=== PATIENT | male | born 1985 | race Hispanic/Latino ===

== ENCOUNTER 2019-10-20 16:10 | Emergency (ER) | payer OTHER ==
[~2019-10-20] VITALS: Ht 177.8 cm; Wt 137.0 kg
[~2019-10-20 16:10] MED LIST: BYETTA5 MCG/0.01 SC; GLIPIZIDE PO; LEVEMIR100 UNIT/1 SC; NOVOLOG MI100 UNITS/ SC; SENNA-DOCUSATE1 EAC2 PO; Z.0.GLUCOPHAGE500 MG PO; Z.0.NORCO 10-325 T1 PO; Z.0.PRINIVIL5 MG; [UNRECOGNIZED DRUG - OTHER]
[2019-10-20] MEDS ORDERED: ONDANSETRON HCL INJ 2MG/ML 2ML 2 MG/ML VIAL IV STA (16:38)
[2019-10-20] MEDS ORDERED: MORPHINE SULFATE INJ 4 MG/ML INJ 1ML IV STA (16:38)
[2019-10-20] MEDS ORDERED: SODIUM CHLORIDE 0.9% 1000ML 1,000 ML IV STA (16:38)
[2019-10-20 17:10] LABS: CLARITY,URINE HAZY (CLEAR); COLOR,URINE YELLOW (YELLOW); LEUKOCYTE ESTERASE ,URINE NEGATIVE (NEGATIVE); NITRITE,URINE NEGATIVE (NEGATIVE); PROTEIN,URINE DIPSTICK NEGATIVE (NEGATIVE)
[2019-10-20 17:11] LABS: BACTERIA,URINE FEW /HPF; BILIRUBIN,URINE NEGATIVE (NEGATIVE); EPITHELIAL CELLS,URINE FEW /LPF; KETONES,URINE NEGATIVE (NEGATIVE); RBC,URINE 0-5 /HPF (0-5); URINE UROBILINOGEN 0.2 mg/dL (0.2 - 1); WBC,URINE (MAN) 0-5 /HPF (0-5)
[2019-10-20 17:32] LABS: BASOPHILS % 0.3 % (0.0-1.0); EOSINOPHILS # (AUTO) 0.1 (0.0-0.4); EOSINOPHILS % 1.9 % (0.0-6.0); HEMATOCRIT 46.1 % (38.2-49.6); LYMPHOCYTES # (AUTO) 1.9 (1.0-3.2); LYMPHOCYTES % 27.5 % (18.0-39.1); MEAN CORPUSCULAR HEMOGLOBIN 29.4 pg (28-32); MEAN CORPUSCULAR HGB CONC 34.7 g/dL (31-35); MEAN CORPUSCULAR VOLUME 84.6 fL (81-99); MONOCYTES # (AUTO) 0.5 (0.2-0.8); MONOCYTES % 7.1 % (4.4-11.3); NEUTROPHILS # (AUTO) 4.2 (2.1-6.9); NEUTROPHILS % 62.9 % (38.7-80.0); PLATELET COUNT 244 x10e3/uL (140-360); RED BLOOD COUNT 5.45 x10e6/uL (4.3-5.7); RED CELL DISTRIBUTION WIDTH 11.8 % (11.7-14.4)
[2019-10-20 17:48] LABS: ALANINE AMINOTRANSFERASE 23 IU/L (0-55); ALBUMIN 3.2 g/dL (3.5-5.0); ALKALINE PHOSPHATASE 93 IU/L (40-150); ANION GAP 10.1 mmol/L (8-16); BLOOD UREA NITROGEN 7 mg/dL (7-26); BUN/CREATININE RATIO 8 (6-25); CALCIUM 8.8 mg/dL (8.4-10.2); CARBON DIOXIDE 28 mmol/L (22-29); CHLORIDE 101 mmol/L (98-107); CREATININE, SERUM 0.91 mg/dL (0.72-1.25); EST GLOMERULAR FILTRATION RATE > 60 ML/MIN (60-); GLUCOSE 347 mg/dL (74-118); POTASSIUM 4.1 mmol/L (3.5-5.1); SODIUM 135 mmol/L (136-145)
--- NOTE | 2019-10-20 18:43 | Diagnostic Imaging Report ---
EXAM: CT Abdomen and Pelvis WITH contrast INDICATION: ^RIGHT INQUINAL PAIN ^[id number] ^1800 COMPARISON: None. TECHNIQUE: Abdomen and pelvis were scanned utilizing a multidetector helical scanner from the lung base to the pubic symphysis after administration of IV contrast. Coronal and sagittal reformations were obtained. Routine protocol was performed. Scan was performed when during portal venous phase. IV CONTRAST: 100 mL of Isovue-370 ORAL CONTRAST: None RADIATION DOSE: Total DLP: 1425 mGy*cm Estimated effective dose: (DLP x 0.015 x size factor) mSv COMPLICATIONS: None FINDINGS: LINES and TUBES: None. LOWER THORAX: Unremarkable HEPATOBILIARY: No focal hepatic lesions. No biliary ductal dilation. GALLBLADDER: No radio-opaque stones or sludge. No wall thickening. SPLEEN: No splenomegaly. PANCREAS: Mild diffuse atrophy of the pancreas. No pancreatic masses. No pancreatic duct dilatation. ADRENALS: No adrenal nodules KIDNEYS/URETERS: Kidneys enhance symmetrically. No hydronephrosis. No cystic or solid mass lesions. No stones. GI TRACT: No abnormal distention, wall thickening, or evidence of bowel obstruction. Appendectomy. PELVIC ORGANS/BLADDER: Unremarkable. LYMPH NODES: No lymphadenopathy. VESSELS: Unremarkable. PERITONEUM / RETROPERITONEUM: No free air or fluid. 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 SOFT TISSUES: Unremarkable. IMPRESSION: No acute abnormality within the abdomen and pelvis. Fatty atrophy of the pancreas. Signed by: Dr. Nadya Corey M.D. on 10/20/2019 6:40 PM
[2019-10-20] MEDS ORDERED: INSULIN REGULAR, HUMAN 100 UNIT/1 ML 3ML VIAL IV ONE (19:00)
[2019-10-20 19:28] VITALS: BP 133/79
== END 2019-10-20 19:32 | disposition home or self-care (01) ==
LOC: ER 16:10
DX: R10.31 Right lower quadrant pain (principal); S39.011A Strain of muscle, fascia and tendon of abdomen, initial encounter; R73.9 Hyperglycemia, unspecified; Z88.0 Allergy status to penicillin; Z91.018 Allergy to other foods; E11.9 Type 2 diabetes mellitus without complications; Z83.3 Family history of diabetes mellitus; Z82.49 Family history of ischemic heart disease and other diseases of the circulatory system
CPT/HCPCS: 36415; 74177; 80053; 81001; 82948; 85025; 99284; J1817; J2270; J2405; J7030

== ENCOUNTER 2019-11-14 18:49 | Emergency (ER) | payer OTHER ==
[~2019-11-14] VITALS: Ht 177.8 cm; Wt 137.0 kg
--- OUTSIDE RECORDS SUMMARY | 2019-11-14 18:53 | XMS REPORT ---
Author Author [facility] Organization [facility] Address Unknown Phone Unavailable Care Team Providers Care Ceo Na Name Role Phone SOLEDAD WEATHERS MD PP Kaity [place] Unavailable Unavailable Payers Payer Name Policy Type Policy Number Effective Date Expiration Date [employer] o [id number] 2017 00:00:00 Problems This patient has no known problems. Allergies, Adverse Reactions, Alerts Allergy Name Allergy Type Status Severity Reaction(s) Onset Date Inactive Date Treating Clinician Comments AYDEE SKIN Allergy to Substance Active Mild SWELLING OF THE LIPS 2011-02-16 00:00:00 Penicillin Allergy to Substance Active Severe RASH 2010-02-22 00:00:00 Medications Ordered Medication Name Filled Medication Name Start Date Stop Date Current Medication? Ordering Clinician Indication Dosage Frequency Signature (SIG) Comments Components Insulin Aspart (Novolog Mix 70-30 Vial) 100 Units/Ml Ml Insulin Aspart (Novolog Mix 70-30 Vial) 100 Units/Ml Ml Yes 30 Three Times A Day Insulin Detemir (Levemir) 100 Unit/1 Ml Vial Insulin Detemir (Levemir) 100 Unit/1 Ml Vial Yes 30 Bedtime Exenatide (Byetta) 5 Mcg/0.02 Ml Pen.injctr, 10 Units Subcutaneously Exenatide (Byetta) 5 Mcg/0.02 Ml Pen.injctr, 10 Units Subcutaneously 2016-04-14 00:00:00 No 10 Twice A Day Metformin Hcl (Glucophage) 500 Mg Tablet, 500 Mg Oral Metformin Hcl (Glucophage) 500 Mg Tablet, 500 Mg Oral 2016-04-14 00:00:00 No 500 Twice A Day Glipizide (Glucotrol) 10 Mg Tablet, 10 Mg Oral Glipizide (Glucotrol) 10 Mg Tablet, 10 Mg Oral 2013-03-06 00:00:00 No 10 Twice A Day Hydrocodone Bit/Acetaminophen ([place] 10-325 Tablet) 1 Each Tablet, 1 Each Oral Hydrocodone Bit/Acetaminophen ([place] 10-325 Tablet) 1 Each Tablet, 1 Each Oral 2011-12-11 00:00:00 No 1 Every 6 Hours as needed Lisinopril (Prinivil) 5 Mg Tablet, Lisinopril (Prinivil) 5 Mg Tablet, 2011-12-11 00:00:00 No Pitavastatin Calcium (Livalo) 4 Mg Tablet, Pitavastatin Calcium (Livalo) 4 Mg Tablet, 2011-12-11 00:00:00 No Sennosides/Docusate Sodium (Senna-Docusate Sodium Tablet) 1 Each Tablet, 2 Tab Oral Sennosides/Docusate Sodium (Senna-Docusate Sodium Tablet) 1 Each Tablet, 2 Tab Oral 2011-12-11 00:00:00 No 2 Procedures and Interventions Procedure Date / Time Performed Performing Clinician Computed tomography of abdomen and pelvis with contrast 2019-10-20 00:00:00 TATIANA CARRINGTON Encounters Start Date/Time End Date/Time Encounter Type Admission Type Attending [facility] Care Department Encounter ID 2019-10-20 16:10:00 2019-10-20 19:32:00 Departed Emergency Room 1 [facility] [id number] Results Test Description Test Time Test Comments Text Results Atomic Results Result Comments Bedside Glucose 2019-10-20 19:37:00 Bedside Glucose (test uwib=04142-9) 178 70-120 Meter ID: [id number] ABDOMEN/PELVIS [id number] 18:32:00 [place] [address] Patient Name: MOO FRASER III MR #: [id number] : 1985 Age/Sex: 34/M Req #: [id number] [facility] Physician: Ordered by: TATIANA CARRINGTON [employer] Report #: [id number] Location: ER Room/Bed: Procedure: [id number] CT/CT ABDOMEN/PELVIS W Exam Date: 10/20/19 Exam T anna: 1800 REPORT STATUS: Signed EXAM: CT Abdomen and Pelvis WITH contrast INDICATION: RIGHT INQUINA L PAIN [id number] 1800 COMPARISON: None. TECHNIQUE: Abdomen and p elida were scanned utilizing a multidetector helical scanner from the lung bas e to the pubic symphysis after administration of IV contrast. Coronal and sagi ttal reformations were obtained. Routine protocol was performed. Scan was perf ormed when during portal venous phase. IV CONTRAST: 100 mL of Isov ue-370 ORAL CONTRAST: None RADIATION DOSE: Total DLP : 1425 mGy*cm Estimated effective dose: (DLP x 0.015 x size facto r) mSv COMPLICATIONS: None FINDINGS: LINES and TUBES: No ne. LOWER THORAX: Unremarkable HEPATOBILIARY: No focal hepatic l esions. No biliary ductal dilation. GALLBLADDER: No radio-opaque stones or sludge. No wall thickening. SPLEEN: No splenomegaly. PANCREAS: Mild diffuse atrophy of the pancreas. No pancreatic masses. No pancreatic duct dil atation. ADRENALS: No adrenal nodules KIDNEYS/URETERS: Kidneys e nhance symmetrically. No hydronephrosis. No cystic or solid mass lesions. No stones. GI TRACT: No abnormal distention, wall thickening, or evidence of bowel obstruction. Appendectomy. PELVIC ORGANS/BLADDER: Unremarkabl e. LYMPH NODES: No lymphadenopathy. VESSELS: Unremarkable. PERITO NEUM / RETROPERITONEUM: No free air or fluid. 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 SOFT TISSUES: Unremarkable. IMPRESSION: No acute abnormality within the abdomen and pelvis. Fatty atrophy of the pancreas. Signed by: Dr. Renate Ruano M.D. on 10/20/2019 6:40 PM Dictated By: RENATE RUANO MD 1840 Transcribed By: HENRIQUE on 10/20/19 18 40 COPY TO: TATIANA CARRINGTON NP Sodium Jbbxa1255-65-93 17:51:00* Test Item Value Reference Range Comments Sodium Level (test pvwe=9749-3) 135 136-145 Potassium Tauii0868-09-59 17:51:00* Test Item Value Reference Range Comments Potassium Level (test gnkx=0473-8) 4.1 3.5-5.1 Chloride Ownez1120-34-14 17:51:00* Test Item Value Reference Range Comments Chloride Level (test xlqz=2462-0) 101 98-107 Carbon Dioxide Xajii7905-10-37 17:51:00* Test Item Value Reference Range Comments Carbon Dioxide Level (test vzsf=7262-6) 28 22-29 Anion Fzg3563-21-80 17:51:00* Test Item Value Reference Range Comments Anion Gap (test uczt=89053-8) 10.1 8-16 Blood Urea Kamknqbk2832-41-90 17:51:00* Test Item Value Reference Range Comments Blood Urea Nitrogen (test pbnk=2768-2) 7 7-26 Jfwlhtiakf6161-16-16 17:51:00* Test Item Value Reference Range Comments Creatinine (test qimu=8797-5) 0.91 0.72-1.25 BUN/Creatinine Fdkzl2760-73-62 17:51:00* Test Item Value Reference Range Comments BUN/Creatinine Ratio (test vrvi=7948-0) 8 6-25 Estimat Glomerular Filtration Ukct8890-52-50 17:51:00* Test Item Value Reference Range Comments Estimat Glomerular Filtration Rate (test txpv=621769363) > 60 >60 Ranges were taken from the National Kidney Disease Education Program and the [facility] literature.Reference ranges:60 or greater: Pbpfug26-89 ( for 3 consecutive months): Chronic kidney disease 15 or less: Kidney failure Glucose Lsbiz1695-46-10 17:51:00* Test Item Value Reference Range Comments Glucose Level (test xave=QAA3149) 347 74-118 Calcium Athut0318-88-18 17:51:00* Test Item Value Reference Range Comments Calcium Level (test ncdr=34298-9) 8.8 8.4-10.2 Total Uendovpze1280-03-45 17:51:00* Test Item Value Reference Range Comments Total Bilirubin (test lzhy=2157-2) 0.3 0.2-1.2 Aspartate Amino Transf (AST/SGOT)2019-10-20 17:51:00* Test Item Value Reference Range Comments Aspartate Amino Transf (AST/SGOT) (test code=Aspartate Amino Transf (AST/SGOT)) 16 5-34 Alanine Aminotransferase (ALT/SGPT)2019-10-20 17:51:00* Test Item Value Reference Range Comments Alanine Aminotransferase (ALT/SGPT) (test xibp=7870-5) 23 0-55 Total Klzsdkw8235-59-05 17:51:00* Test Item Value Reference Range Comments Total Protein (test guwi=8201-4) 6.5 6.5-8.1 Nzonytb7183-67-47 17:51:00* Test Item Value Reference Range Comments Albumin (test zout=4284-0) 3.2 3.5-5.0 Txhkkyms7938-84-05 17:51:00* Test Item Value Reference Range Comments Globulin (test lqlp=11993-1) 3.3 2.3-3.5 Albumin/Globulin Ptypy4511-75-61 17:51:00* Test Item Value Reference Range Comments Albumin/Globulin Ratio (test oqko=6254-9) 1.0 0.8-2.0 Alkaline Poykapndcks2779-62-24 17:51:00* Test Item Value Reference Range Comments Alkaline Phosphatase (test ixjz=6686-0) 93 40-150 White Blood Cvzsu9162-53-54 17:32:00* Test Item Value Reference Range Comments White Blood Count (test pfrt=3366-8) 6.72 4.8-10.8 Red Blood Crjxj8271-99-15 17:32:00* Test Item Value Reference Range Comments Red Blood Count (test eorv=094-5) 5.45 4.3-5.7 Xhezjovtms8200-43-60 17:32:00* Test Item Value Reference Range Comments Hemoglobin (test ytef=37287-2) 16.0 14.0-18.0 Yfgxvpswjo3058-87-64 17:32:00* Test Item Value Reference Range Comments Hematocrit (test exmw=6272-3) 46.1 38.2-49.6 Mean Corpuscular Vjqugm4109-67-66 17:32:00* Test Item Value Reference Range Comments Mean Corpuscular Volume (test wdcm=543-1) 84.6 81-99 Mean Corpuscular Djpqzcujry4136-01-04 17:32:00* Test Item Value Reference Range Comments Mean Corpuscular Hemoglobin (test hdel=665-6) 29.4 28-32 Mean Corpuscular Hemoglobin Kmshqcf4378-99-88 17:32:00* Test Item Value Reference Range Comments Mean Corpuscular Hemoglobin Concent (test uvnj=247-2) 34.7 31-35 Red Cell Distribution Dxmfe8933-20-05 17:32:00* Test Item Value Reference Range Comments Red Cell Distribution Width (test fnto=06469-0) 11.8 11.7-14.4 Platelet Aeigj4612-94-97 17:32:00* Test Item Value Reference Range Comments Platelet Count (test dlyw=418-6) 244 140-360 Neutrophils (%) (Auto)2019-10-20 17:32:00* Test Item Value Reference Range Comments Neutrophils (%) (Auto) (test nkwg=70581-0) 62.9 38.7-80.0 Lymphocytes (%) (Auto)2019-10-20 17:32:00* Test Item Value Reference Range Comments Lymphocytes (%) (Auto) (test iksa=224-3) 27.5 18.0-39.1 Monocytes (%) (Auto)2019-10-20 17:32:00* Test Item Value Reference Range Comments Monocytes (%) (Auto) (test suyp=4765-1) 7.1 4.4-11.3 Eosinophils (%) (Auto)2019-10-20 17:32:00* Test Item Value Reference Range Comments Eosinophils (%) (Auto) (test ebar=051-3) 1.9 0.0-6.0 Basophils (%) (Auto)2019-10-20 17:32:00* Test Item Value Reference Range Comments Basophils (%) (Auto) (test uvri=143-1) 0.3 0.0-1.0 IM GRANULOCYTES %2019-10-20 17:32:00* Test Item Value Reference Range Comments IM GRANULOCYTES % (test code=IM GRANULOCYTES %) 0.3 0.0-1.0 Neutrophils # (Auto)2019-10-20 17:32:00* Test Item Value Reference Range Comments Neutrophils # (Auto) (test qxxp=000-8) 4.2 2.1-6.9 Lymphocytes # (Auto)2019-10-20 17:32:00* Test Item Value Reference Range Comments Lymphocytes # (Auto) (test memj=70511-6) 1.9 1.0-3.2 Monocytes # (Auto)2019-10-20 17:32:00* Test Item Value Reference Range Comments Monocytes # (Auto) (test ximb=797-9) 0.5 0.2-0.8 Eosinophils # (Auto)2019-10-20 17:32:00* Test Item Value Reference Range Comments Eosinophils # (Auto) (test mxvg=144-7) 0.1 0.0-0.4 Basophils # (Auto)2019-10-20 17:32:00* Test Item Value Reference Range Comments Basophils # (Auto) (test kual=411-9) 0.0 0.0-0.1 Absolute Immature Granulocyte (oxxp6202-76-17 17:32:00* Test Item Value Reference Range Comments Absolute Immature Granulocyte (auto (test code=Absolute Immature Granulocyte (auto) 0.02 0-0.1 Urine Ycsnr9927-54-90 17:11:00* Test Item Value Reference Range Comments Urine Color (test snmc=9994-4) YELLOW YELLOW Urine Kvqscre7303-73-55 17:11:00* Test Item Value Reference Range Comments Urine Clarity (test seuf=15900-7) HAZY CLEAR Urine Specific Vwwqrjk0913-24-51 17:11:00* Test Item Value Reference Range Comments Urine Specific [place] (test okzg=1660-1) 1.025 1.010-1.025 Urine kE8526-92-16 17:11:00* Test Item Value Reference Range Comments Urine pH (test qeri=28031-0) 8.5 5-7 Urine Leukocyte Vgyzhnha5267-19-95 17:11:00* Test Item Value Reference Range Comments Urine Leukocyte Esterase (test ticp=4096-5) NEGATIVE NEGATIVE Urine Qzcpliw9933-59-01 17:11:00* Test Item Value Reference Range Comments Urine Nitrite (test kzvq=94749-1) NEGATIVE NEGATIVE Urine Efsdjjv3560-72-69 17:11:00* Test Item Value Reference Range Comments Urine Protein (test pqgl=5601-0) NEGATIVE NEGATIVE Urine Glucose (UA)2019-10-20 17:11:00* Test Item Value Reference Range Comments Urine Glucose (UA) (test nkju=0584-8) 2+ NEGATIVE Urine Zzbhbno2885-71-25 17:11:00* Test Item Value Reference Range Comments Urine Ketones (test syzn=87216-1) NEGATIVE NEGATIVE Urine Xrziakmehwbk9477-80-02 17:11:00* Test Item Value Reference Range Comments Urine Urobilinogen (test czba=29941-3) 0.2 0.2-1 Urine Zmzfxreiq0440-62-48 17:11:00* Test Item Value Reference Range Comments Urine Bilirubin (test ihfd=3250-9) NEGATIVE NEGATIVE Urine Thfxc9496-08-90 17:11:00* Test Item Value Reference Range Comments Urine Blood (test yupy=31782-8) NEGATIVE NEGATIVE Urine JJZ3143-60-86 17:11:00* Test Item Value Reference Range Comments Urine WBC (test auve=8396-9) 0-5 0-5 Urine AAU0633-37-53 17:11:00* Test Item Value Reference Range Comments Urine RBC (test zmob=18939-3) 0-5 0-5 Urine Mbtchygq5165-81-66 17:11:00* Test Item Value Reference Range Comments Urine Bacteria (test ugba=99379-0) FEW NONE Urine Epithelial Ckkhd7636-55-05 17:11:00* Test Item Value Reference Range Comments Urine Epithelial Cells (test rluw=58291-7) FEW NONE
[2019-11-14 19:43] LABS: BILIRUBIN,URINE NEGATIVE (NEGATIVE); CLARITY,URINE CLEAR (CLEAR); COLOR,URINE YELLOW (YELLOW); KETONES,URINE NEGATIVE (NEGATIVE); LEUKOCYTE ESTERASE ,URINE NEGATIVE (NEGATIVE); NITRITE,URINE NEGATIVE (NEGATIVE); PROTEIN,URINE DIPSTICK NEGATIVE (NEGATIVE); URINE UROBILINOGEN 0.2 mg/dL (0.2 - 1)
[2019-11-14 19:55] LABS: EPITHELIAL CELLS,URINE FEW /LPF; RBC,URINE 0-5 /HPF (0-5)
[2019-11-14 21:25] VITALS: BP 130/95
--- NOTE | 2019-11-15 00:11 | Diagnostic Imaging Report ---
EXAMINATION: RIBS UNILAT W/CXR INDICATION: Status post fall, left rib pain. COMPARISON: None FINDINGS: TUBES and LINES: None. LUNGS: Low lung volumes. There is no evidence of pneumonia or pulmonary edema. PLEURA: No pleural effusion or pneumothorax. HEART AND MEDIASTINUM: The cardiomediastinal silhouette is unremarkable. BONES AND SOFT TISSUES: No acute osseous lesion. Soft tissues are unremarkable. No evidence of displaced rib fracture. UPPER ABDOMEN: No free air under the diaphragm. IMPRESSION: No acute thoracic abnormality. No evidence of displaced rib fracture. Signed by: Dr. Bud Cloud MD on 11/15/2019 12:08 AM
== END 2019-11-14 21:15 | disposition home or self-care (01) ==
LOC: ER 18:49
DX: S20.212A Contusion of left front wall of thorax, initial encounter (principal); R07.89 Other chest pain; W01.198A Fall on same level from slipping, tripping and stumbling with subsequent striking against other object, initial encounter; Y92.008 Other place in unspecified non-institutional (private) residence as the place of occurrence of the external cause
CPT/HCPCS: 71101; 81001; 99283

== ENCOUNTER 2020-06-28 15:13 | Inpatient (IN) | payer OTHER ==
[~2020-06-28] VITALS: Ht 177.8 cm; Wt 137.0 kg
[2020-06-28] MEDS ORDERED: SODIUM CHLORIDE 0.9% 1000ML 1,000 ML IV STA (15:20)
[2020-06-28 15:54] LABS: BASOPHILS % 0.3 % (0.0-1.0); EOSINOPHILS # (AUTO) 0.1 (0.0-0.4); EOSINOPHILS % 1.1 % (0.0-6.0); HEMATOCRIT 45.3 % (38.2-49.6); HEMOGLOBIN 15.7 g/dL (14.0-18.0); LYMPHOCYTES # (AUTO) 1.6 (1.0-3.2); MEAN CORPUSCULAR HEMOGLOBIN 29.7 pg (28-32); MEAN CORPUSCULAR HGB CONC 34.7 g/dL (31-35); MEAN CORPUSCULAR VOLUME 85.6 fL (81-99); MONOCYTES # (AUTO) 0.4 (0.2-0.8); MONOCYTES % 6.2 % (4.4-11.3); NEUTROPHILS # (AUTO) 4.9 (2.1-6.9); NEUTROPHILS % 69.1 % (38.7-80.0); PLATELET COUNT 222 x10e3/uL (140-360); RED BLOOD COUNT 5.29 x10e6/uL (4.3-5.7); RED CELL DISTRIBUTION WIDTH 11.6 % (11.7-14.4)
[2020-06-28] MEDS ORDERED: VANCOMYCIN 1GM/NS 250 ML 250 ML IV ONE (16:00)
[2020-06-28] MEDS: CEFEPIME 2 GM/NS 0.9% 100 ML 100 ML IV SCH (16:03)
[2020-06-28 16:24] LABS: ALANINE AMINOTRANSFERASE 18 IU/L (0-55); ALBUMIN 3.2 g/dL (3.5-5.0); ALBUMIN/GLOBULIN RATIO 0.9 (0.8-2.0); ALKALINE PHOSPHATASE 117 IU/L (40-150); ANION GAP 12.3 mmol/L (8-16); BLOOD UREA NITROGEN 16 mg/dL (7-26); BUN/CREATININE RATIO 17 (6-25); CALCIUM 8.5 mg/dL (8.4-10.2); CARBON DIOXIDE 28 mmol/L (22-29); CHLORIDE 98 mmol/L (98-107); CREATININE, SERUM 0.94 mg/dL (0.72-1.25); EST GLOMERULAR FILTRATION RATE > 60 ML/MIN (60-); POTASSIUM 4.3 mmol/L (3.5-5.1); SODIUM 134 mmol/L (136-145)
[2020-06-28 16:56] LABS: GLUCOSE 472 mg/dL (74-118)
[2020-06-28] MEDS ORDERED: INSULIN LISPRO 100 UNIT/1 ML 3ML VIAL SQ STA (17:00)
[2020-06-28] MEDS ORDERED: SODIUM CHLORIDE 0.9% 1000ML 1,000 ML IV SCH (17:15)
[2020-06-28] MEDS ORDERED: DEXTROSE 50% SYRINGE 50 ML IV PRN (17:15)
[2020-06-28] MEDS ORDERED: DIPHENHYDRAMINE HCL INJ 50 MG/ML VIAL ONE (18:29)
[2020-06-28] MEDS ORDERED: DIPHENHYDRAMINE HCL INJ 50 MG/ML VIAL IV ONE (18:30)
[2020-06-28] MEDS: MORPHINE SULFATE INJ 4 MG/ML INJ 1ML IV PRN (18:45)
[2020-06-28] MEDS: ONDANSETRON HCL INJ 2MG/ML 2ML 2 MG/ML VIAL IV PRN (18:45)
[2020-06-28 19:45] VITALS: BP 135/88
[2020-06-28 20:36] VITALS: BP_SYST 135; BP_SYST 151; BP_DIAS 74; BP_DIAS 88
[2020-06-28] MEDS ORDERED: PNEUMOCOCCAL VACCINE POLYVALENT 23 MCG/0.5 ML VIAL IM SCH (20:44)
[2020-06-28] MEDS ORDERED: INFLUENZA VIRUS VAC SPLIT INJ 0.5 ML SYR IM SCH (20:44)
[2020-06-28] MEDS: INSULIN LISPRO 100 UNIT/1 ML 3ML VIAL SQ SCH (21:09)
[2020-06-28] MEDS ORDERED: INSULIN GLARGINE 100 UNITS/ML VIAL SC SCH (21:30)
[2020-06-28] MEDS: HYDROCODONE/APAP 7.5MG-325MG 1 EA TAB PO PRN (21:55)
[2020-06-28] MEDS: GABAPENTIN 100 MG CAP PO SCH (21:55)
[2020-06-29] VITALS (7 sets, daily range): BP systolic 115–146; BP diastolic 66–92
[2020-06-29] MEDS: MORPHINE SULFATE INJ 4 MG/ML INJ 1ML IV PRN ×5 (01:10→22:17)
[2020-06-29] MEDS: ONDANSETRON HCL INJ 2MG/ML 2ML 2 MG/ML VIAL IV PRN ×5 (01:10→22:17)
[2020-06-29] MEDS: CEFEPIME 2 GM/NS 0.9% 100 ML 100 ML IV SCH ×2 (03:30→17:24)
[2020-06-29] MEDS: VANCOMYCIN 1GM/NS 250 ML 250 ML IV SCH ×2 (04:40→17:24)
[2020-06-29 06:46] LABS: BASOPHILS % 0.3 % (0.0-1.0); EOSINOPHILS # (AUTO) 0.3 (0.0-0.4); EOSINOPHILS % 3.6 % (0.0-6.0); HEMATOCRIT 39.5 % (38.2-49.6); HEMOGLOBIN 13.4 g/dL (14.0-18.0); LYMPHOCYTES # (AUTO) 2.3 (1.0-3.2); LYMPHOCYTES % 32.1 % (18.0-39.1); MEAN CORPUSCULAR HEMOGLOBIN 29.5 pg (28-32); MEAN CORPUSCULAR HGB CONC 33.9 g/dL (31-35); MONOCYTES # (AUTO) 0.5 (0.2-0.8); MONOCYTES % 7.5 % (4.4-11.3); NEUTROPHILS % 56.2 % (38.7-80.0); PLATELET COUNT 203 x10e3/uL (140-360); RED BLOOD COUNT 4.54 x10e6/uL (4.3-5.7); RED CELL DISTRIBUTION WIDTH 11.5 % (11.7-14.4)
[2020-06-29 07:05] LABS: ANION GAP 10.1 mmol/L (8-16); BLOOD UREA NITROGEN 15 mg/dL (7-26); BUN/CREATININE RATIO 19 (6-25); CARBON DIOXIDE 25 mmol/L (22-29); CHLORIDE 103 mmol/L (98-107); EST GLOMERULAR FILTRATION RATE > 60 ML/MIN (60-); GLUCOSE 386 mg/dL (74-118); POTASSIUM 4.1 mmol/L (3.5-5.1); SODIUM 134 mmol/L (136-145)
[2020-06-29] MEDS: INSULIN LISPRO 100 UNIT/1 ML 3ML VIAL SQ SCH ×7 (07:30→20:26)
[2020-06-29] MEDS: GABAPENTIN 100 MG CAP PO SCH ×3 (09:31→20:27)
[2020-06-29] MEDS: SENNA-S TABLET PO SCH ×2 (09:31→17:24)
[2020-06-29] MEDS: HYDROCODONE/APAP 7.5MG-325MG 1 EA TAB PO PRN (20:27)
[2020-06-29] MEDS: INSULIN GLARGINE 100 UNITS/ML VIAL SC SCH (20:39)
[2020-06-30] VITALS (8 sets, daily range): BP systolic 119–149; BP diastolic 80–98
[2020-06-30] MEDS: CEFEPIME 2 GM/NS 0.9% 100 ML 100 ML IV SCH ×2 (03:43→16:00)
[2020-06-30] MEDS: MORPHINE SULFATE INJ 4 MG/ML INJ 1ML IV PRN ×4 (03:43→18:10)
[2020-06-30] MEDS: ONDANSETRON HCL INJ 2MG/ML 2ML 2 MG/ML VIAL IV PRN ×4 (03:43→18:10)
[2020-06-30] MEDS: VANCOMYCIN 1GM/NS 250 ML 250 ML IV SCH ×2 (04:49→16:00)
[2020-06-30] MEDS: INSULIN LISPRO 100 UNIT/1 ML 3ML VIAL SQ SCH ×7 (07:30→20:45)
[2020-06-30] MEDS: HYDROCODONE/APAP 7.5MG-325MG 1 EA TAB PO PRN ×2 (07:38→20:52)
[2020-06-30] MEDS: SENNA-S TABLET PO SCH ×2 (09:00→16:50)
[2020-06-30] MEDS: GABAPENTIN 100 MG CAP PO SCH ×3 (09:00→20:45)
[2020-06-30] MEDS: METHYLPREDNISOLONE SOD SUCC 40 MG/ML VIAL 1ML IV SCH (20:45)
[2020-06-30] MEDS: INSULIN GLARGINE 100 UNITS/ML VIAL SC SCH (20:45)
[2020-07-01] VITALS: BP 128/85
[2020-07-01] MEDS: ONDANSETRON HCL INJ 2MG/ML 2ML 2 MG/ML VIAL IV PRN ×2 (00:51→05:45)
[2020-07-01] MEDS: MORPHINE SULFATE INJ 4 MG/ML INJ 1ML IV PRN ×2 (00:51→05:45)
[2020-07-01] MEDS: VANCOMYCIN 1GM/NS 250 ML 250 ML IV SCH (03:16)
[2020-07-01] MEDS: HYDROCODONE/APAP 7.5MG-325MG 1 EA TAB PO PRN ×2 (03:17→09:39)
[2020-07-01 04:00] VITALS: BP 123/87
[2020-07-01] MEDS: CEFEPIME 2 GM/NS 0.9% 100 ML 100 ML IV SCH (05:30)
[2020-07-01 06:23] LABS: ANION GAP 13.8 mmol/L (8-16); BLOOD UREA NITROGEN 12 mg/dL (7-26); BUN/CREATININE RATIO 15 (6-25); CALCIUM 9.2 mg/dL (8.4-10.2); CARBON DIOXIDE 24 mmol/L (22-29); CHLORIDE 99 mmol/L (98-107); CREATININE, SERUM 0.82 mg/dL (0.72-1.25); EST GLOMERULAR FILTRATION RATE > 60 ML/MIN (60-); GLUCOSE 357 mg/dL (74-118); POTASSIUM 4.8 mmol/L (3.5-5.1); SODIUM 132 mmol/L (136-145)
[2020-07-01 08:23] VITALS: BP 143/103
[2020-07-01 08:24] VITALS: BP 143/103
[2020-07-01] MEDS: INSULIN LISPRO 100 UNIT/1 ML 3ML VIAL SQ SCH ×4 (09:00→13:45)
[2020-07-01] MEDS: METHYLPREDNISOLONE SOD SUCC 40 MG/ML VIAL 1ML IV SCH (09:40)
[2020-07-01] MEDS: SENNA-S TABLET PO SCH (09:40)
[2020-07-01] MEDS: GABAPENTIN 100 MG CAP PO SCH (09:40)
[2020-07-01 12:40] VITALS: BP 135/92
== END 2020-07-01 13:30 | disposition home or self-care (01) | DRG 603 ==
LOC: ER 15:50 → ERHOLD 17:07 → MED/SURG2 19:12
PROVIDERS: ADMIT Internal Medicine; ATTEND Internal Medicine
DX: L03.113 Cellulitis of right upper limb (principal); Z68.41 Body mass index [BMI] 40.0-44.9, adult; E66.9 Obesity, unspecified; M10.9 Gout, unspecified; E10.65 Type 1 diabetes mellitus with hyperglycemia; Z79.4 Long term (current) use of insulin; Z88.0 Allergy status to penicillin; Z91.018 Allergy to other foods; E10.42 Type 1 diabetes mellitus with diabetic polyneuropathy; I10 Essential (primary) hypertension; Z20.828 Contact with and (suspected) exposure to other viral communicable diseases
CPT/HCPCS: 36415; 80048; 80053; 80202; 82948; 83036; 84550; 85025; 85651; 87040; 90732; 99284; J1200; J1815; J2270; J2405; J2920; J3370; J7030; U0002

== ENCOUNTER 2020-12-04 20:25 | Emergency (ER) | payer BC, OTHER ==
[~2020-12-04] VITALS: Ht 177.8 cm; Wt 127.0 kg
[2020-12-04] MEDS ORDERED: SODIUM CHLORIDE 0.9% 1000ML 1,000 ML IV STA (20:36)
[2020-12-04] MEDS ORDERED: SODIUM CHLORIDE 0.9% 1000ML 1,000 ML ONE (21:26)
[2020-12-04] MEDS ORDERED: INSULIN REGULAR, HUMAN 100 UNIT/1 ML 3ML VIAL ONE (21:26)
== END 2020-12-04 22:30 | disposition home or self-care (01) ==
LOC: FSED 20:30
DX: E11.65 Type 2 diabetes mellitus with hyperglycemia (principal); R53.81 Other malaise; R53.1 Weakness
CPT/HCPCS: 80053; 81003; 85025; 99283; J1817; J7030

== ENCOUNTER 2020-12-12 15:26 | Emergency (ER) | payer BC, OTHER ==
[~2020-12-12] VITALS: Ht 177.8 cm; Wt 136.1 kg
[2020-12-12] MEDS ORDERED: CYCLOBENZAPRINE HCL 10 MG TAB PO ONE (15:45)
[2020-12-12] MEDS ORDERED: CYCLOBENZAPRINE HCL 10 MG TAB ONE (15:58)
[2020-12-12] MEDS ORDERED: CYCLOBENZAPRINE5 MG PO (16:12)
== END 2020-12-12 16:58 | disposition home or self-care (01) ==
LOC: FSED 15:44
DX: R07.89 Other chest pain (principal); E11.65 Type 2 diabetes mellitus with hyperglycemia; F17.210 Nicotine dependence, cigarettes, uncomplicated
CPT/HCPCS: 71045; 93005; 99283

== ENCOUNTER 2020-12-12 20:17 | Emergency (ER) | payer BC, OTHER ==
[~2020-12-12] VITALS: Ht 177.8 cm; Wt 136.1 kg
[~2020-12-12 20:17] MED LIST changes: +CYCLOBENZAPRINE5 MG PO
[2020-12-12] MEDS ORDERED: ASPIRIN 81 MG CHEW TAB PO STA (20:47)
[2020-12-12] MEDS ORDERED: ACETAMINOPHEN 325 MG TAB PO ONE (21:00)
[2020-12-12] MEDS ORDERED: ASPIRIN 81 MG CHEW TAB PO ONE (21:00)
[2020-12-12 21:21] LABS: BASOPHILS % 0.4 % (0.0-1.0); EOSINOPHILS # (AUTO) 0.2 (0.0-0.4); EOSINOPHILS % 1.6 % (0.0-6.0); HEMATOCRIT 44.3 % (38.2-49.6); HEMOGLOBIN 15.6 g/dL (14.0-18.0); LYMPHOCYTES % 19.2 % (18.0-39.1); MEAN CORPUSCULAR HEMOGLOBIN 29.5 pg (28-32); MEAN CORPUSCULAR HGB CONC 35.2 g/dL (31-35); MEAN CORPUSCULAR VOLUME 83.9 fL (81-99); MONOCYTES # (AUTO) 0.9 (0.2-0.8); MONOCYTES % 8.7 % (4.4-11.3); NEUTROPHILS # (AUTO) 7.3 (2.1-6.9); NEUTROPHILS % 69.7 % (38.7-80.0); PLATELET COUNT 298 x10e3/uL (140-360); RED BLOOD COUNT 5.28 x10e6/uL (4.3-5.7); RED CELL DISTRIBUTION WIDTH 11.8 % (11.7-14.4)
[2020-12-12 21:27] LABS: CLARITY,URINE CLEAR (CLEAR); COLOR,URINE YELLOW (YELLOW); LEUKOCYTE ESTERASE ,URINE NEGATIVE (NEGATIVE); NITRITE,URINE NEGATIVE (NEGATIVE); PROTEIN,URINE DIPSTICK NEGATIVE (NEGATIVE)
[2020-12-12 21:28] LABS: AMPHETAMINES SCREEN,URINE NEGATIVE (NEGATIVE); BENZODIAZEPINES SCREEN,URINE NEGATIVE (NEGATIVE); KETONES,URINE TRACE (NEGATIVE); PHENCYCLIDINE SCREEN,URINE NEGATIVE (NEGATIVE); URINE UROBILINOGEN 0.2 mg/dL (0.2 - 1)
[2020-12-12 21:41] LABS: EPITHELIAL CELLS,URINE FEW /LPF; RBC,URINE 0-5 /HPF (0-5)
[2020-12-12 21:44] LABS: ALANINE AMINOTRANSFERASE 20 IU/L (0-55); ALBUMIN/GLOBULIN RATIO 0.7 (0.8-2.0); ALKALINE PHOSPHATASE 127 IU/L (40-150); ANION GAP 17.2 mmol/L (8-16); BLOOD UREA NITROGEN 17 mg/dL (7-26); BUN/CREATININE RATIO 18 (6-25); CALCIUM 9.3 mg/dL (8.4-10.2); CARBON DIOXIDE 24 mmol/L (22-29); CHLORIDE 97 mmol/L (98-107); CREATINE KINASE 53 IU/L (30-200); CREATININE, SERUM 0.96 mg/dL (0.72-1.25); EST GLOMERULAR FILTRATION RATE > 60 ML/MIN (60-); POTASSIUM 4.2 mmol/L (3.5-5.1); SODIUM 134 mmol/L (136-145)
[2020-12-12 21:49] LABS: GLUCOSE 490 mg/dL (74-118)
[2020-12-12] MEDS ORDERED: INSULIN REGULAR, HUMAN 100 UNIT/1 ML 3ML VIAL IV ONE (22:15)
[2020-12-13] MEDS ORDERED: ENOXAPARIN SOD INJ 40 MG/0.4 ML SYR SC SCH (09:00)
[2020-12-13] MEDS ORDERED: ZINC SULFATE 220 MG CAP PO SCH (09:00)
[2020-12-13] MEDS ORDERED: AZITHROMYCIN 500MG/NS 250 ML 250 ML IV SCH (09:00)
== END 2020-12-12 22:55 | disposition home or self-care (01) ==
LOC: ER 20:52
DX: U07.1 COVID-19 (principal); R05 Cough; R07.89 Other chest pain; E11.65 Type 2 diabetes mellitus with hyperglycemia
CPT/HCPCS: 36415; 71045; 80053; 80307; 81001; 82550; 82553; 84484; 85025; 85379; 93005; 99284; U0002

== ENCOUNTER 2020-12-18 10:27 | Inpatient (IN) | payer OTHER ==
[2020-12-18] MEDS ORDERED: ACETAMINOPHEN 325 MG TAB PO PRN (13:30)
[2020-12-18] MEDS ORDERED: NON-FORMULARY MEDICATION (Cyclobenzaprine Hcl (Flexeril) 10 MG) PO PRN (15:45)
[2020-12-18] MEDS ORDERED: DEXTROSE 50% SYRINGE 50 ML IV PRN (15:45)
[2020-12-18] MEDS ORDERED: CYCLOBENZAPRINE HCL 10 MG TAB PO PRN (16:00)
[2020-12-18] MEDS: INSULIN LISPRO 100 UNIT/1 ML 3ML VIAL SQ SCH ×2 (17:01→21:00)
[2020-12-18] MEDS: ACETAMINOPHEN/CODEINE 300MG - 30MG TAB PO PRN (17:29)
[2020-12-18 17:40] LABS: BASOPHILS % 0.2 % (0.0-1.0); EOSINOPHILS % 0.1 % (0.0-6.0); HEMATOCRIT 38.7 % (38.2-49.6); HEMOGLOBIN 13.4 g/dL (14.0-18.0); LYMPHOCYTES # (AUTO) 1.1 (1.0-3.2); LYMPHOCYTES % 6.8 % (18.0-39.1); MEAN CORPUSCULAR HEMOGLOBIN 29.5 pg (28-32); MEAN CORPUSCULAR HGB CONC 34.6 g/dL (31-35); MEAN CORPUSCULAR VOLUME 85.1 fL (81-99); MONOCYTES # (AUTO) 1.7 (0.2-0.8); MONOCYTES % 10.5 % (4.4-11.3); NEUTROPHILS # (AUTO) 12.8 (2.1-6.9); NEUTROPHILS % 81.9 % (38.7-80.0); PLATELET COUNT 307 x10e3/uL (140-360); RED BLOOD COUNT 4.55 x10e6/uL (4.3-5.7); RED CELL DISTRIBUTION WIDTH 11.6 % (11.7-14.4)
[2020-12-18 17:59] LABS: ALANINE AMINOTRANSFERASE 14 IU/L (0-55); ALBUMIN 2.2 g/dL (3.5-5.0); ALBUMIN/GLOBULIN RATIO 0.5 (0.8-2.0); ALKALINE PHOSPHATASE 127 IU/L (40-150); ANION GAP 20.4 mmol/L (8-16); BLOOD UREA NITROGEN 11 mg/dL (7-26); BUN/CREATININE RATIO 14 (6-25); CALCIUM 8.6 mg/dL (8.4-10.2); CARBON DIOXIDE 21 mmol/L (22-29); CHLORIDE 93 mmol/L (98-107); CREATININE, SERUM 0.81 mg/dL (0.72-1.25); EST GLOMERULAR FILTRATION RATE > 60 ML/MIN (60-); GLUCOSE 397 mg/dL (74-118); POTASSIUM 4.4 mmol/L (3.5-5.1); SODIUM 130 mmol/L (136-145)
[2020-12-18 18:07] LABS: INR 0.98; PROTHROMBIN TIME 13.6 seconds (11.9-14.5)
[2020-12-18 19:26] LABS: FREE THYROXINE INDEX 2.6611 (1.4-3.8); THYROID STIMULATING HORMONE 0.993 uIU/mL (0.350-4.940)
[2020-12-18 20:00] VITALS: BP 134/101
[2020-12-18 21:00] VITALS: BP 134/101
[2020-12-18] MEDS ORDERED: INSULIN LISPRO 100 UNIT/1 ML 3ML VIAL SQ SCH (21:00)
[2020-12-18] MEDS ORDERED: INSULIN GLARGINE 100 UNITS/ML VIAL SQ SCH ×2 (21:00)
[2020-12-18] MEDS ORDERED: NON-FORMULARY MEDICATION (Insulin Detemir (Levemir) 20 UNITS) SC SCH (21:00)
[2020-12-18] MEDS ORDERED: MORPHINE SULFATE INJ 2 MG/ML SYR IV STA (21:15)
[2020-12-18] MEDS: CEFAZOLIN SOD 1 GM/NS 50ML 50 ML IV SCH (22:00)
[2020-12-19] VITALS: BP 157/91
[2020-12-19] MEDS: ACETAMINOPHEN/CODEINE 300MG - 30MG TAB PO PRN ×3 (00:26→12:30)
[2020-12-19 04:00] VITALS: BP 137/85
[2020-12-19] MEDS: CEFAZOLIN SOD 1 GM/NS 50ML 50 ML IV SCH (05:27)
[2020-12-19] MEDS: INSULIN LISPRO 100 UNIT/1 ML 3ML VIAL SQ SCH ×4 (07:30→12:00)
[2020-12-19 08:05] VITALS: BP 156/111
[2020-12-19 08:57] VITALS: BP 156/111
[2020-12-19] MEDS ORDERED: LOSARTAN POTASSIUM 25 MG TAB PO SCH (09:30)
[2020-12-19 11:29] LABS: CLARITY,URINE CLEAR (CLEAR); COLOR,URINE YELLOW (YELLOW); KETONES,URINE >=160 (NEGATIVE); LEUKOCYTE ESTERASE ,URINE NEGATIVE (NEGATIVE); NITRITE,URINE NEGATIVE (NEGATIVE); PROTEIN,URINE DIPSTICK 1+ (NEGATIVE); URINE UROBILINOGEN 0.2 mg/dL (0.2 - 1)
[2020-12-19 11:37] LABS: EPITHELIAL CELLS,URINE FEW /LPF; WBC,URINE (MAN) 0-5 /HPF (0-5)
[2020-12-19 11:46] VITALS: BP 150/101
[2020-12-19] MEDS ORDERED: INSULIN GLARGINE 100 UNITS/ML VIAL SQ SCH (21:00)
== END 2020-12-19 12:38 | disposition left against medical advice (07) | DRG 872 ==
LOC: EDSTATUS 11:12 → MED/SURG3 12:50
PROVIDERS: ADMIT Internal Medicine; ATTEND Internal Medicine
DX: A41.9 Sepsis, unspecified organism (principal); E66.9 Obesity, unspecified; B95.8 Unspecified staphylococcus as the cause of diseases classified elsewhere; E11.65 Type 2 diabetes mellitus with hyperglycemia; N40.0 Benign prostatic hyperplasia without lower urinary tract symptoms; R59.0 Localized enlarged lymph nodes
CPT/HCPCS: 36415; 71045; 80053; 81001; 82785; 82948; 83036; 84436; 84443; 84479; 85025; 85610; 87040; J0690; J2270; U0002

== ENCOUNTER 2022-09-24 02:05 | Observation (INO) | payer OTHER ==
[2022-09-24] VITALS (7 sets, daily range): BP systolic 143–165; BP diastolic 74–92
[~2022-09-24] VITALS: Ht 177.8 cm; Wt 145.1 kg
[2022-09-24 02:22] LABS: BASOPHILS % 0.4 % (0.0-1.0); EOSINOPHILS # (AUTO) 0.3 (0.0-0.4); EOSINOPHILS % 3.1 % (0.0-6.0); HEMATOCRIT 35.2 % (38.2-49.6); HEMOGLOBIN 11.7 g/dL (14.0-18.0); LYMPHOCYTES # (AUTO) 1.8 (1.0-3.2); LYMPHOCYTES % 20.7 % (18.0-39.1); MEAN CORPUSCULAR HGB CONC 33.2 g/dL (31-35); MEAN CORPUSCULAR VOLUME 87.1 fL (81-99); MONOCYTES # (AUTO) 0.6 (0.2-0.8); MONOCYTES % 7.2 % (4.4-11.3); NEUTROPHILS # (AUTO) 5.8 (2.1-6.9); NEUTROPHILS % 68.4 % (38.7-80.0); PLATELET COUNT 261 x10e3/uL (140-360); RED BLOOD COUNT 4.04 x10e6/uL (4.3-5.7); RED CELL DISTRIBUTION WIDTH 12.2 % (11.7-14.4)
[2022-09-24] MEDS ORDERED: COREG12.5 MG PO (02:25)
[2022-09-24] MEDS ORDERED: LASIX40 MG PO (02:25)
[2022-09-24] MEDS ORDERED: HYDRALAZINE HCL25 MG PO (02:25)
[2022-09-24] MEDS ORDERED: FUROSEMIDE INJ 10 MG/ML 4 ML VIAL IV STA (02:31)
[2022-09-24 02:43] LABS: CREATINE KINASE MB 1.9 ng/mL (0-5.0)
[2022-09-24 02:46] LABS: ALBUMIN 2.8 g/dL (3.5-5.0); ALBUMIN/GLOBULIN RATIO 0.6 (0.8-2.0); ANION GAP 13.1 mmol/L (8-16); CALCIUM 8.1 mg/dL (8.4-10.2); CREATININE, SERUM 1.41 mg/dL (0.72-1.25); POTASSIUM 4.1 mmol/L (3.5-5.1)
[2022-09-24 02:55] LABS: AMPHETAMINES SCREEN,URINE NEGATIVE (NEGATIVE); BENZODIAZEPINES SCREEN,URINE NEGATIVE (NEGATIVE); PHENCYCLIDINE SCREEN,URINE NEGATIVE (NEGATIVE)
[2022-09-24] MEDS: Morphine 4mg INJECTION 4 MG/ML INJ IV PRN ×4 (04:32→20:32)
[2022-09-24] MEDS ORDERED: NIFEDIPINE ER30 M1 PO (07:32)
[2022-09-24] MEDS ORDERED: FUROSEMIDE INJ 10 MG/ML 4 ML VIAL IV SCH (09:00)
[2022-09-24] MEDS ORDERED: DEXTROSE 50% SYRINGE 50 ML IV PRN (09:45)
[2022-09-24] MEDS: INSULIN LISPRO 100 UNIT/1 ML 3ML VIAL SQ SCH ×3 (11:25→20:37)
[2022-09-24] MEDS: INSULIN ASPART 70/30 100 UNITS/ML VIAL SC SCH ×2 (11:28→16:27)
[2022-09-24] MEDS: FUROSEMIDE INJ 10 MG/ML 4 ML VIAL IV SCH (12:11)
[2022-09-24 13:47] LABS: CREATINE KINASE MB 1.7 ng/mL (0-5.0)
[2022-09-24] MEDS: HYDRALAZINE HCL 25 MG TAB PO SCH ×2 (14:26→20:31)
[2022-09-24] MEDS: CARVEDILOL 12.5 MG TAB PO SCH (16:30)
[2022-09-24] MEDS ORDERED: HYDRALAZINE HCL 20 MG/ML VIAL IV PRN (17:00)
[2022-09-24] MEDS ORDERED: ENOXAPARIN SOD INJ 40 MG/0.4 ML SYR SC SCH (17:00)
[2022-09-24 18:33] LABS: CREATINE KINASE MB 1.6 ng/mL (0-5.0)
[2022-09-24] MEDS ORDERED: INSULIN GLARGINE 100 UNITS/ML VIAL SQ SCH (21:00)
[2022-09-25 00:41] VITALS: BP 154/87
[2022-09-25] MEDS: Morphine 4mg INJECTION 4 MG/ML INJ IV PRN (03:13)
[2022-09-25 05:44] VITALS: BP 152/80
[2022-09-25] MEDS: HYDRALAZINE HCL 25 MG TAB PO SCH (05:48)
[2022-09-25 05:53] LABS: BASOPHILS % 0.4 % (0.0-1.0); EOSINOPHILS # (AUTO) 0.2 (0.0-0.4); EOSINOPHILS % 2.1 % (0.0-6.0); HEMATOCRIT 34.6 % (38.2-49.6); HEMOGLOBIN 11.5 g/dL (14.0-18.0); LYMPHOCYTES # (AUTO) 1.4 (1.0-3.2); LYMPHOCYTES % 15.3 % (18.0-39.1); MEAN CORPUSCULAR HEMOGLOBIN 29.3 pg (28-32); MEAN CORPUSCULAR HGB CONC 33.2 g/dL (31-35); MONOCYTES # (AUTO) 0.6 (0.2-0.8); MONOCYTES % 6.8 % (4.4-11.3); NEUTROPHILS # (AUTO) 6.9 (2.1-6.9); NEUTROPHILS % 75.1 % (38.7-80.0); PLATELET COUNT 241 x10e3/uL (140-360); RED BLOOD COUNT 3.93 x10e6/uL (4.3-5.7); RED CELL DISTRIBUTION WIDTH 11.9 % (11.7-14.4)
[2022-09-25 06:17] LABS: ALBUMIN 2.4 g/dL (3.5-5.0); ALBUMIN/GLOBULIN RATIO 0.6 (0.8-2.0); ANION GAP 11.3 mmol/L (8-16); CALCIUM 8.2 mg/dL (8.4-10.2); CREATININE, SERUM 1.18 mg/dL (0.72-1.25); POTASSIUM 4.3 mmol/L (3.5-5.1)
[2022-09-25 06:37] LABS: CHOL/HDL RATIO 5.9 (3.9-4.7)
[2022-09-25 07:08] LABS: THYROID STIMULATING HORMONE 2.691 uIU/mL (0.350-4.940)
[2022-09-25 08:00] VITALS: BP 174/95
[2022-09-25 09:05] VITALS: BP 174/95
[2022-09-25] MEDS: CARVEDILOL 12.5 MG TAB PO SCH (09:12)
[2022-09-25] MEDS: FUROSEMIDE INJ 10 MG/ML 4 ML VIAL IV SCH (09:12)
[2022-09-25] MEDS: INSULIN LISPRO 100 UNIT/1 ML 3ML VIAL SQ SCH (09:15)
[2022-09-25] MEDS: INSULIN ASPART 70/30 100 UNITS/ML VIAL SC SCH (09:16)
== END 2022-09-25 10:27 | disposition home or self-care (01) ==
LOC: ER 02:10 → INTOOBSV 03:32 → ERHOLD 03:32 → MED/SURG2 04:12
PROVIDERS: ADMIT Internal Medicine; ATTEND Internal Medicine
DX: T46.1X5A Adverse effect of calcium-channel blockers, initial encounter (principal); R60.9 Edema, unspecified; I10 Essential (primary) hypertension; E10.42 Type 1 diabetes mellitus with diabetic polyneuropathy; E10.69 Type 1 diabetes mellitus with other specified complication; R06.02 Shortness of breath; E78.5 Hyperlipidemia, unspecified; G47.30 Sleep apnea, unspecified; L03.90 Cellulitis, unspecified; I34.0 Nonrheumatic mitral (valve) insufficiency; I07.1 Rheumatic tricuspid insufficiency; E66.01 Morbid (severe) obesity due to excess calories; Z88.0 Allergy status to penicillin; Z91.018 Allergy to other foods; Z20.822 Contact with and (suspected) exposure to COVID-19; Z79.4 Long term (current) use of insulin; Z79.899 Other long term (current) drug therapy; Z68.42 Body mass index [BMI] 45.0-49.9, adult; Z82.49 Family history of ischemic heart disease and other diseases of the circulatory system; Z83.3 Family history of diabetes mellitus
CPT/HCPCS: 36415 ×2; 71045; 71250; 80053 ×2; 80061; 80307; 82044; 82550; 82553; 82948 ×2; 83036 ×2; 83690; 83880; 84443; 84484; 85025 ×2; 93005; 93306; 94799; 99284; G0378 ×2; J0360; J1650; J1815 ×2; J1940 ×2; J2270 ×2; U0002

== ENCOUNTER 2023-08-20 02:05 | Emergency (ER) | payer SELFPAY ==
[~2023-08-20] VITALS: Ht 177.8 cm; Wt 138.8 kg
[~2023-08-20 02:05] MED LIST changes: +COREG12.5 MG PO; +HYDRALAZINE HCL25 MG PO; +LASIX40 MG PO; +NIFEDIPINE ER30 M1 PO
[2023-08-20] MEDS ORDERED: HYDROCODONE/APAP 10MG-325MG TAB PO ONE (02:30)
[2023-08-20 02:38] LABS: BASOPHILS % 0.4 % (0.0-1.0); EOSINOPHILS # (AUTO) 0.3 (0.0-0.4); EOSINOPHILS % 2.6 % (0.0-6.0); HEMATOCRIT 35.6 % (38.2-49.6); HEMOGLOBIN 11.6 g/dL (14.0-18.0); LYMPHOCYTES # (AUTO) 1.7 (1.0-3.2); LYMPHOCYTES % 16.8 % (18.0-39.1); MEAN CORPUSCULAR HEMOGLOBIN 28.6 pg (28-32); MEAN CORPUSCULAR HGB CONC 32.6 g/dL (31-35); MEAN CORPUSCULAR VOLUME 87.9 fL (81-99); MONOCYTES # (AUTO) 0.8 (0.2-0.8); MONOCYTES % 7.7 % (4.4-11.3); NEUTROPHILS # (AUTO) 7.1 (2.1-6.9); NEUTROPHILS % 72.3 % (38.7-80.0); PLATELET COUNT 274 x10e3/uL (140-360); RED BLOOD COUNT 4.05 x10e6/uL (4.3-5.7); RED CELL DISTRIBUTION WIDTH 11.8 % (11.7-14.4)
[2023-08-20 02:50] LABS: ALBUMIN 2.8 g/dL (3.5-5.0); ALBUMIN/GLOBULIN RATIO 0.7 (0.8-2.0); ANION GAP 14.2 mmol/L (8-16); BILIRUBIN,TOTAL 0.2 mg/dL (0.2-1.2); CALCIUM 8.5 mg/dL (8.4-10.2); CREATININE, SERUM 2.4 mg/dL (0.72-1.25); POTASSIUM 4.2 mmol/L (3.5-5.1)
[2023-08-20] MEDS ORDERED: DOXYCYCLINE HY100 MG PO (03:42)
[2023-08-20 03:47] VITALS: O2SAT 100
== END 2023-08-20 03:57 | disposition home or self-care (01) ==
LOC: ER 02:15
DX: M79.601 Pain in right arm (principal); M79.89 Other specified soft tissue disorders; E11.65 Type 2 diabetes mellitus with hyperglycemia; I10 Essential (primary) hypertension; H54.8 Legal blindness, as defined in USA
CPT/HCPCS: 36415; 80053; 85025; 93971; 99284